=== PATIENT | female | born 1970 | race African-American/Black ===

== ENCOUNTER → 2017-01-22 | Day surgery (SDC) | payer OTHER ==
[~2017-01-22] MED LIST: ACID CONTROL20 MG PO; ALBUTEROL17 GM INH; AMBIEN10 MG PO; AMLODIPINE BESYL5 MG PO; AMOXICILLIN500 M1 PO; ASPIRIN; ASPIRIN EC81 M1 PO; B COMPLEX1 CA1 PO; B COMPLEX1 EACH; BENTYL20 MG PO; CARAFATE PO; CARAFATE1 GM PO; CATAPRES-TTS-30.3 M1 EXT; CHANTIX0.5 MG PO; CIPRO PO; CLARITIN D; CLARITIN D PO; CLOPIDOGREL75 MG PO; DAZIDOX10 MG PO; DEXILANT30 MG PO; DEXILANT60 MG PO; DOXYCYCLINE; DULCOLAX5 MG PO; DYAZIDE 37.5/251 CAP PO; FLAGYL PO; FLEXERIL PO; FLEXERIL10 M1 PO; FLONASE16 GM; FLUCONAZOL10 MG/1 ML JT; GABAPENTIN300 M2 PO; GABAPENTIN600 MG PO; HYDROCODON-ACE1 EAC5 PO; KETOPROFEN; KLONOPIN; LO-DOSE ASPIRIN81 M1 PO; LORTAB 10-3251 EACH PO; LORTAB 10-5001 EACH PO; LORTAB 10/500 T1 TAB; LORTAB 101 TAB 10/5 DOB; LORTAB 5/500 TA1 TA2 PO; METHIMAZOLE10 MG PO; MOTION RELIEF25 MG JT; NEURONTIN300 MG PO; NEXIUM40 MG/PACK PO; NICOTINE TRANSD21 MG EXT; NORMODYNE200 M1 JT; NORVASC PO; NORVASC10 MG PO; NYSTATIN5 ML PO; OXYCODONE HCL5 MG JT; PAIN RELIEF325 MG PO; PEPCID AC20 M2 PO; PERCOCET 5-3251 TAB PO; PERCOCET10 PO; PERCOCET5/325 PO; PHENERGAN PO; PHENERGAN25 M1 PO; PHENERGAN25 MG PO; PLAVIX PO; PORTLAND PHARMACY; PRILOSEC PO; PROTONIX PO; REGLAN5 MG PO; SODIUM BICARBO650 MG JT; SYMBICORT INH; TESSALON200 MG PO; TRAZODONE HCL150 MG PO; ULTRAM PO; VITAMIN B-121000 MCG PO; VITAMIN D PO; VITAMIN E PO; VOLTAREN75 MG PO; ZANTAC; ZANTAC150 MG PO; ZITHROMAX PO; ZOFRAN PO; [UNRECOGNIZED DRUG - OTHER]
--- NOTE | ~2017-01-22 | OR ---
Unit #: [id number] #: [id number] Patient: LEONORA KENT [id number] [address] [place], [place] [address] [id number] O MR#: [id number] NAME: LEONORA KENT ROOM: Date of Procedure: 01/22/2017 Admission Date: 01/22/2017 Surgeon: Kulwant Huang M.D. : 1970 Attending Physician: Kulwant Huang M.D. Referring Physician: Kulwant Huang M.D. Primary Care Physician: Melchor Miner Jr., A.P.R.N. OPERATIVE REPORT PREOPERATIVE DIAGNOSES Recent increased dysphagia; prior esophageal myotomy along with resection of one of the patient's lower esophageal diverticula. POSTOPERATIVE DIAGNOSES Recent increased dysphagia; prior esophageal myotomy along with resection of one of the patient's lower esophageal diverticula with some narrowing of the lower esophagus. PROCEDURE PERFORMED Esophagogastroscopy along with esophageal dilatation using Savary dilators over a guidewire. ANESTHESIA MAC. ESTIMATED BLOOD LOSS None. COMPLICATIONS None. DESCRIPTION OF PROCEDURE The patient was taken to the endoscopy suite and placed on a stretcher in a left lateral decubitus position with the head of the stretcher being elevated slightly. IV sedation was then given per the Anesthesia Department. After adequate anesthesia had been obtained, the flexible endoscope was passed orally per bite block into the posterior pharynx. Under direct vision, the scope was then passed down into the esophagus. The scope was then passed through the esophagus under direct vision down into the stomach. As the scope was being passed, there was noted to be some narrowing of the lower portion of the esophagus with some mild tortuosity and some mild mucosal erythema. However, with mild manipulation, the scope passed easily down into the stomach. There was a moderate amount of retained food material present in the stomach. For this reason, a full examination of the stomach could not be carried out. Also, I did not go into the duodenum because of this food material. The portion of the stomach that was able to be examined was found to be without ulcerations or polyps. The scope was then withdrawn back up into the esophagus. The distal portion of the esophagus was at about 41 cm from the incisors. As stated previously, there was some mild narrowing as well as ulceration of the lower third of the esophagus. The esophagus above this level appeared to be fairly normal. The scope was passed back Unit #: [id number] #: [id number] Patient: LEONORA KENT down into the stomach and a Savary dilator wire was then passed per the scope into the stomach. The scope was then removed keeping this guidewire in place. The patient was then progressively dilated over the guidewire using Savary dilators. I initially started with a #10 Savary dilator and progressed up to a #15 Savary dilator. This last dilator was removed along with the guidewire. The patient tolerated the procedure well and left the endoscopy suite in satisfactory condition. Dictated by... Evelyne Ku/zuri TD: 01/23/2017 05:27 JOB #: [id number] OPERATIVE REPORT Page 1 of 1 X Kulwant Huang MD X PROCEDURE OPERATIVE NOTE
== END | disposition home or self-care (01) ==
LOC: COPS 11:15
DX: K22.2 Esophageal obstruction (principal)

== ENCOUNTER → 2017-04-08 | Outpatient (CLI) | payer OTHER ==
--- NOTE | ~2017-04-08 | CR97 ---
[facility] A Service of [facility] RADIOLOGY TEXT RESULTS PATIENT: LEONORA KENT LOCATION: [facility] : [birth year] UNIT #: [id number] AGE: [address]: Kulwant Huang MD SEX: F ORDER DR: [id number] [facility] [address] [place], [place] [address] [id number] O MR#: [id number] Acc #: [id number] NAME: LEONORA KENT : 1970 SEX: F STUDY DATE/TIME: 04/08/2017 10:08 UNIT: [facility] ROOM: STUDY DESCRIPTION: CR Esophagram Attending Physician: Kulwant Huang M.D. Referring Physician: Kulwant Huang M.D. Ordering Physician: Kulwant Huang M.D. Primary Care Physician: Melchor Miner Jr., A.P.R.N. MEDICAL IMAGING REPORT This report is preliminary unless electronic signature is present EXAM Esophagram. HISTORY Dysphagia. Difficulty eating, especially meat over the last 2 months. History of esophageal dilatation about 1.5 months ago. Prior history of esophageal surgery in 2013. FINDINGS Double-contrast esophagram was performed. Fluoro time is 1.6 minutes. 45 images were obtained. Comparison is made with 10/01/2015. The afx-vc-etljv esophagus has a patulous appearance. The tktnl-im-faa esophagus is within normal limits. Motility is normal. There are at least 3 diverticula in the lower esophagus which are presumably pulsion diverticula. There is a relative area of narrowing above the GE junction, but this is still patent. This did not cause any obstruction to a standard barium tablet. This may be related to prior surgery. Correlate clinically. The appearance of the lower esophagus is very similar in appearance to 01/07/2015 exam. IMPRESSION Relatively stable exam from 01/07/2015. Lower esophagus is patulous above the level of multiple lower diverticula. There is no obstruction to barium flow and a standard barium tablet passes into the stomach without delay. Dictated by... Jeovanny Jay Jr., M.D. [facility] A Service of [facility] RADIOLOGY TEXT RESULTS PATIENT: LEONORA KENT LOCATION: [facility] : [birth year] UNIT #: [id number] AGE: [address]: Kulwant Huang MD SEX: F ORDER DR: THIS IS AN ELECTRONICALLY VERIFIED REPORT Jeovanny Jay Jr., M.D. at 04/08/2017 4:48 PM DERRICK/gino TD: 04/08/2017 13:40 JOB #: [id number] MEDICAL IMAGING REPORT Page 1 of 1 COPY
== END | disposition home or self-care (01) ==
LOC: CRAD 09:28
DX: R13.10 Dysphagia, unspecified (principal); K57.90 Diverticulosis of intestine, part unspecified, without perforation or abscess without bleeding; K22.8 Other specified diseases of esophagus
CPT/HCPCS: 74220

== ENCOUNTER → 2017-04-29 | Day surgery (SDC) | payer OTHER ==
--- NOTE | ~2017-04-29 | OR ---
Unit #: [id number] #: [id number] Patient: LEONORA KENT [id number] [address] [place], [place] [address] [id number] O MR#: [id number] NAME: LEONORA KENT ROOM: Date of Procedure: 04/29/2017 Admission Date: 04/29/2017 Surgeon: Kulwant Huang M.D. : 1970 Attending Physician: Kulwant Huang M.D. Referring Physician: Kulwant Huang M.D. Primary Care Physician: Melchor Miner Jr., A.P.RApurvaN. OPERATIVE REPORT PREOPERATIVE DIAGNOSES Dysphagia; prior esophageal myotomy and diverticulectomy. POSTOPERATIVE DIAGNOSES Dysphagia; prior esophageal myotomy and diverticulectomy with some mild narrowing at the gastroesophageal junction as well as some mild erythema. PROCEDURES PERFORMED Esophagogastroduodenoscopy and esophageal dilatation with Savary dilators under fluoroscopic control. ANESTHESIA MAC. ESTIMATED BLOOD LOSS None. COMPLICATIONS None. DESCRIPTION OF PROCEDURE The patient was taken to the endoscopy suite and placed on her stretcher in a left lateral decubitus position. After appropriate monitoring lines had been placed, IV sedation was given per the Anesthesia Department. The flexible endoscope was then passed orally per a bite block into the posterior pharynx and then the scope passed down into the esophagus. Under direct vision, the scope was passed through the esophagus and into the stomach and then finally out into the duodenum. The duodenal bulb and proximal second portion of the duodenum appeared within normal limits. The scope was withdrawn back into the stomach. There was some mild erythema at the pylorus as well as in the antrum of the stomach. The scope was then withdrawn back up into the esophagus. Gastroesophageal junction was present at about 42 cm from the incisors and there was some mild erythema at this area, which extended proximally for 1 cm or so. The esophagus above this level was rather dilated. Even though, the esophagram had suggested that the patient still has some small diverticula present of the lower esophagus, these were somewhat difficult to visualize. As stated previously, the esophagus above this level seemed to be rather dilated and without any significant contractility. The scope was passed back down into the stomach and a guidewire then passed per the scope. This guidewire was left in place with the scope being removed. Under fluoroscopic control, the patient was then progressively dilated Unit #: [id number] #: [id number] Patient: LEONORA KENT using Savary dilators over the guidewire. I initially started with a #12 Savary dilator and progressed up to a #15 Savary dilator. This last dilator was removed along with the guidewire. The patient tolerated the procedure well and left the endoscopy suite in satisfactory condition. Dictated by... Evelyne Ku/zuri TD: 04/30/2017 01:50 JOB #: [id number] OPERATIVE REPORT Page 1 of 1 X Kulwant Huang MD X PROCEDURE OPERATIVE NOTE
== END | disposition home or self-care (01) ==
LOC: COPS 04-22 10:00
DX: R13.10 Dysphagia, unspecified (principal); K22.8 Other specified diseases of esophagus; E05.90 Thyrotoxicosis, unspecified without thyrotoxic crisis or storm; K21.9 Gastro-esophageal reflux disease without esophagitis; Q39.6 Congenital diverticulum of esophagus; I10 Essential (primary) hypertension; F17.200 Nicotine dependence, unspecified, uncomplicated; Z88.2 Allergy status to sulfonamides
CPT/HCPCS: 76000; J2250